=== PATIENT | male | born 2000 | race Caucasian/White ===

== ENCOUNTER → 2020-07-25 | Outpatient (CLI) | payer SELFPAY | LOC: ZCOL.LAB 20:47 | DX: B34.9 Viral infection, unspecified (principal); Z20.828 Contact with and (suspected) exposure to other viral communicable diseases ==

== ENCOUNTER 2020-08-09 13:06 | Emergency (ER) | payer MEDICAID ==
[~2020-08-09] VITALS: Ht 188 cm; Wt 93.2 kg
[2020-08-09 13:24] VITALS: TEMP 98.8
[2020-08-09 15:51] VITALS: BP 128/79; PULSE 66
== END 2020-08-09 15:51 | disposition home or self-care (01) ==
LOC: COL.ER 13:06
DX: S61.412A Laceration without foreign body of left hand, initial encounter (principal); Z23 Encounter for immunization; W26.8XXA Contact with other sharp object(s), not elsewhere classified, initial encounter; Y93.89 Activity, other specified; Y92.219 Unspecified school as the place of occurrence of the external cause